=== PATIENT | female | born 1950 | race Caucasian/White ===

== ENCOUNTER 2018-11-08 14:23 | Emergency (ER) | payer MEDICAID ==
[~2018-11-08] VITALS: Ht 162.6 cm; Wt 85.0 kg
[~2018-11-08 14:23] MED LIST: AMOX500C2 PO; ATOR10TA65 PO; CHLO4TAB PO; FLUT9.9S NASAL; GLIM2TAB PO; LISI-313 PO; METF100010 PO; SODI1PAC NASAL
[2018-11-08 14:42] VITALS: Ht 162.6 cm; Wt 85.0 kg
[2018-11-08] MEDS ORDERED: ALBUTEROL 0.083% (NEB) 2.5 MG/3 ML AMP HHN STA (16:34)
--- NOTE | 2018-11-08 16:45 | ERD ---
ER Documentation Chief Complaint Chief Complaint COUGH WITH SORE THROAT X 3 DAYS HPI This is a 68-year-old female with a history of diabetes mellitus presents to ED with complaints of cough times 2 weeks. Patient admits to sputum production and runny nose and sore throat. Denies fever, chills, ear pain, abdominal pain, nausea, vomiting, diarrhea, constipation, chest pain, shortness breath, trouble breathing and all other symptoms. No known drug allergies. ROS All systems reviewed and are negative except as per history of present illness. Medications Home Meds Active Scripts Chlorpheniramine Maleate* (Chlor-Trimeton*) 4 Mg Tablet, 4 MG PO Q4H, #15 TAB NOT TO EXCEED 24 MG /24 HRS Prov:BRAYDEN CODY DO 10/10/15 Sodium Chloride/Sodium Bicarb (SINUS RINSE PREMIXED PACKET) 1 Each Packet, 1 DOSE NASAL QID, #1 KIT Prov:BRAYDEN CODY DO 10/10/15 Fluticasone Propionate (Flonase Allergy Relief) 9.9 Ml [place].susp, 1 SPRAY NASAL DAILY, #1 BOTTLE TO EACH NOSTRIL Prov:BRAYDEN CODY DO 10/10/15 Amoxicillin* (Amoxicillin*) 500 Mg Cap, 500 MG PO TID for 10 Days, CAP Prov:BRAYDEN CODY DO 10/10/15 Reported Medications Atorvastatin Calcium (Atorvastatin Calcium) 10 Mg Tablet, 5 MG PO QHS, #30 TAB 10/10/15 Lisinopril* (Lisinopril*) 5 Mg Tablet, 5 MG PO QPM, #30 TAB 10/10/15 Glimepiride* (Glimepiride*) 2 Mg Tablet, 2 MG PO BID, TAB 10/10/15 Metformin Hcl* (Metformin Hcl*) 1,000 Mg Tablet, 1000 MG PO BID, #30 TAB 10/10/15 Allergies Allergies: Coded Allergies: No Known Allergy (Unverified , 10/10/15) PMhx/Soc Hx Miscellaneous Medical Probl: Yes (DM) Hx Alcohol Use: Yes (OCCASIONAL) Hx Substance Use: No Hx Tobacco Use: No FmHx Family History: No diabetes Physical Exam Vitals Vital Signs Date Temp Pulse Resp B/P (MAP) Pulse Ox O2 O2 Flow FiO2 Time Delivery Rate 11/08/18 83 19 99 21 16:58 11/08/18 97.8 87 18 172/82 100 14:42 (112) Physical Exam Physical Exam Vitals signs: Reviewed by me. General: Well developed, well nourished, in no acute distress. Patient is awake and alert. Head: Normocephalic, atraumatic. Eyes: Normal conjunctiva, Pupils PERRLA, EOM intact grossly ENT: Pharynx is clear, Moist mucous membranes, external ears, nose and mouth normal, no tonsillar adenopathy, exudate or erythema, no kissing tonsils, no uvula deviation, normal nasal mucosa Neck: Supple, no masses, lymphadenopathy or JVD Respiratory: Faint expiratory wheezing heard in left posterior lung pendleton with faint rales, no respiratory distress or labored breathing Cardiovascular: RRR, no murmurs, rubs, or gallops Back: No midline tenderness. No flank tenderness Neurologic: Alert and oriented, moving all extremities, normal speech, no focal weakness, no cerebellar signs. Normal mentation Skin: warm and dry, No rash Psych: Normal mood Result Diagram: 11/08/18 1652 11/08/18 1652 Results 24 hrs Laboratory Tests Test 11/08/18 16:52 White Blood Count 5.8 10^3/ul Red Blood Count 4.69 10^6/ul Hemoglobin 12.4 g/dl Hematocrit 39.0 % Mean Corpuscular Volume 83.2 fl Mean Corpuscular Hemoglobin 26.4 pg Mean Corpuscular Hemoglobin Concent 31.8 g/dl Red Cell Distribution Width 13.0 % Platelet Count 367 10^3/UL Mean Platelet Volume 9.1 fl Immature Granulocytes % 0.500 % Neutrophils % 54.1 % Lymphocytes % 33.7 % Monocytes % 7.4 % Eosinophils % 3.6 % Basophils % 0.7 % Nucleated Red Blood Cells % 0.0 /100WBC Immature Granulocytes # 0.030 10^3/ul Neutrophils # 3.2 10^3/ul Lymphocytes # 2.0 10^3/ul Monocytes # 0.4 10^3/ul Eosinophils # 0.2 10^3/ul Basophils # 0.0 10^3/ul Nucleated Red Blood Cells # 0.0 10^3/ul Sodium Level 141 mmol/L Potassium Level 5.3 mmol/L Chloride Level 104 mmol/L Carbon Dioxide Level 26 mmol/L Anion Gap 11 Blood Urea Nitrogen 11 mg/dl Creatinine 0.72 mg/dl Est Glomerular Filtrat Rate mL/min > 60 mL/min Glucose Level 132 mg/dl Calcium Level 9.7 mg/dl Current Medications Medications Dose Sig/Mario Start Time Status Last (Trade) Ordered Route PRN Stop Time Admin Dose Reason Admin Albuterol 5 mg ONCE STAT 11/08/18 DC 11/08/18 (Proventil HHN 16:34 16:45 0.083% (Neb)) 11/08/18 16:36 Ipratropium 0.5 mg ONCE ONCE 11/08/18 DC 11/08/18 [place] [facility] 17:00 16:45 (Atrovent 11/08/18 17:01 0.02% (Neb)) Promethazine 5 ml ONCE ONCE 11/08/18 DC HCl/ PO 17:00 Dextromethorp 11/08/18 17:00 dior (Phenergan-Dm ) Promethazine 5 ml ONCE ONCE 11/08/18 DC 11/08/18 HCl/ PO 17:00 17:42 Dextromethorp 11/08/18 17:01 dior (Phenergan-Dm ) Benzonatate 100 mg ONCE ONCE 11/08/18 DC 11/08/18 (Tessalon) PO 17:00 17:42 11/08/18 17:01 Procedures/MDM EKG, MONITORS, & DIAGNOSTIC IMAGING: [place] [id number] Radiology Main Line: [phone] DIAGNOSTIC IMAGING REPORT Patient: VICKY FLEMING : 1950 Age: 68 Sex: F MR #: [id number] DOS: 11/08/18 1634 Ordering MD: JOHNSON COLLINS PA-C Location: [facility] Room/Bed: PROCEDURE: XR Chest PA and Lateral CLINICAL INDICATION: Cough times 2 weeks with some wheezing TECHNIQUE: PA and Lateral views of the chest were obtained. COMPARISON: None. FINDINGS: Cardiovascular: The cardiovascular silhouette appears unremarkable. Lung Pendleton: The lung pendleton appear clear with no nodule, alveolar infiltrate, or interstitial prominence evident. Pleural Spaces: No pneumothorax is identified and no effusion is evident. Osseous Structures: Mild degenerative enthesopathy is seen diffusely through the thoracic spine. Soft Tissues: The soft tissues appear unremarkable. IMPRESSION: 1. No evidence of active cardiopulmonary disease. 2. Mild diffuse degenerative enthesopathy of the thoracic spine. Physician Xuan Date Time Electronically viewed and signed by Gigi Marie Physician on 11/08/2018 17:49 RH/ CC: JOHNSON COLLINS PA-C [id number] LAB INTERPRETATION: CBC shows no evidence of hemorrhage or infection Chemistry shows a mildly elevated potassium 5.3, otherwise unremarkable. ER COURSE: The patient was given Promethazine DM and tessalon perles The medication was well tolerated and the patient reports improvement in symptom s. The patient was stable throughout ED course. I kept the patient and/or family informed of laboratory and diagnostic imaging results throughout the emergency room course. The patient was promptly evaluated and a treatment plan was devised based on H&P and other data. This plan was discussed with the patient who agreed and had no further questions or concerns prior to discharge. MEDICAL DECISION MAKIN-year-old female presents ED with complaints of cough times 2 weeks. Physical examination is remarkable for some faint expiratory wheezing as well as possible rales in the left lower lung field. Chest x-ray is unremarkable. Although chest x-ray shows no pneumonia we will treat patient for pneumonia based off the possible rales that I heard on auscultation. Per the curb 65 patient has a score of 1 and is low risk and can be managed with close outpatient follow-up. Patient's oxygen saturation is 100%. I feel comfortable sending this patient home with close outpatient follow-up. Blood work is remarkable for a mild hyperkalemia 5.3. I discussed with lab in the blood is slightly hemolyzed which can cause a elevated potassium. I discussed these findings with my overseeing physician Dr. Rock and he agrees that patient can be managed close outpatient follow-up. At this time there is no evidence of sepsis, meningitis, acute coronary syndrome, pleural effusion, pneumothorax, tension pneumothorax, STEMI, and STEMI, PE,, among others. Vitals are stable patient can be managed close outpatient follow-up. Advised patient follow-up with primary care in the next 48 hours. Return to ED with any worsening symptoms DISPOSITION PLAN: We discussed follow up with the patient's primary care doctor within 24 to 48 hours. Patient counseled regarding my diagnostic impression and care plan. Prior to discharge all questions answered. Pt agrees with treatment plan and understands strict return precautions. Precautionary instructions provided including instructions to return to the ER if not improving or for any worsening or changing symptoms or concerns. SPECIALIST FOLLOW UP RECOMMENDED: None Patient has been advised to follow up with primary care in 1-2 days. Disclaimer: Inadvertent spelling and grammatical errors are likely due to EHR/dictation software use and do not reflect on the overall quality of patient care. Also, please note that the electronic time recorded on this note does not necessarily reflect the actual time of the patient encounter. Departure Diagnosis: Primary Impression: Pneumonia Pneumonia type: due to unspecified organism Laterality: unspecified laterality Lung location: unspecified part of lung Qualified Codes: J18.9 - Pneumonia, unspecified organism Condition: Stable Patient Instructions: Pneumonia (Adult) [facility] Additional Instructions: Paciente aconseja volver a Departamento de urgencias inmediatamente para sntomas nuevos o que empeoran . Paciente aconseja posteriores con el PCP en 1-2 bowman . Paciente verbaliza la comprehensin y est de acuerdo con el tratamiento y el curso de accin. Si el paciente no tiene ninguna de atencin primaria pueden seguir con [facility] [address] [place] [address] o [facility] + [address] [address] JOHNSON COLLINS PA-C Nov 08, 2018 16:45
[2018-11-08] MEDS ORDERED: PROMETHAZINE/DM (CUP) PO ONE ×2 (17:00)
[2018-11-08] MEDS ORDERED: IPRATROPIUM (NEB) 0.5 MG/2.5 ML AMP INH ONE (17:00)
[2018-11-08] MEDS ORDERED: BENZONATATE 100 MG CAP PO ONE (17:00)
[2018-11-08] MEDS ORDERED: BENZ-6 PO (18:06)
[2018-11-08] MEDS ORDERED: DOXY100T20 PO (18:06)
[2018-11-08 18:13] VITALS: BP 146/69; PULSE 90; RESP 18
== END 2018-11-08 18:14 | disposition home or self-care (01) ==
LOC: FTE 14:23
DX: J18.9 Pneumonia, unspecified organism (principal); E11.9 Type 2 diabetes mellitus without complications; Z79.84 Long term (current) use of oral hypoglycemic drugs
CPT/HCPCS: 36415; 71046; 80048; 85025; 94664; Z7502; Z7610